=== PATIENT | male | born 1985 | race Caucasian/White ===

== ENCOUNTER 2017-01-13 12:45 | Emergency (ER) | payer OTHER, MEDICAID ==
[~2017-01-13] VITALS: Ht 172.7 cm; Wt 96.0 kg
[~2017-01-13 12:45] MED LIST: BACLPOW30 PO; LORA0.5T PO; LORTA5 PO; TRAZ50TA4 PO
[2017-01-13 12:51] VITALS: BP 113/75; PULSE 64; RESP 15; TEMP 98.5; O2SAT 98
[2017-01-13] MEDS ORDERED: AUGM500T7 PO (14:20)
[2017-01-13] MEDS ORDERED: DIAZ5 PO (14:20)
[2017-01-13 14:21] VITALS: BP 109/60; PULSE 55; RESP 17; TEMP 97.8; O2SAT 97
--- NOTE | 2017-01-13 15:13 | PD ---
HPI Chief Complaint: Medical Clearance Time Seen by Provider: 14:23 Travel History International Travel<30 days: No Contact w/Intl Traveler<30days: No Traveled to known affect area: No History of Present Illness HPI 31-year-old male percents emergency from for evaluation of right arm wound recheck. Patient reports 4 days ago he was bit by a stray pit bull and was treated at [facility]. He received first dose of rabies immunization and immunoglobulin and placed on antibiotics. The wound was loosely approximated with sutures. Over the last 4 days his is reporting that he appears "drowsy" prompting her visit today. Patient denies fever or chills. Patient reports pain at the site of the laceration but does not endorse any worsening pain since injury. PFSH Past Medical History Depression: Yes (PTSD) Diminished Hearing: No Musculoskeletal: Yes (BACK PAIN) Immunizations Current: Yes Influenza Vaccination: No Past Surgical History Appendectomy: Yes Social History Alcohol Use: Yes Tobacco Use: Yes (CHEWING TABACCO) Substance Use: No Allergies-Medications (Allergen,Severity, Reaction): Coded Allergies: etodolac (Unverified Allergy, Severe, 01/13/17) naproxen (Unverified Allergy, Severe, 01/13/17) simvastatin (Unverified Allergy, Severe, 01/13/17) Reported Meds & Prescriptions Reported Meds & Active Scripts Active Reported Augmentin (Amoxicillin-Clavulanate) 500-125 mg Tab 500 Mg PO BID Valium (Diazepam) 5 Mg Tab 5 Mg PO BID PRN [Baclofen] 50 Mg PO TID Review of Systems Except as stated in HPI: all other systems reviewed are Neg Physical Exam Narrative GENERAL: Well-nourished, well-developed patient. Patient appears drowsy but is easily arousable. Witnessed ambulate with a steady gait SKIN: Focused skin assessment warm/dry. HEAD: Normocephalic. EYES: No scleral icterus. No injection or drainage. NECK: Supple, trachea midline. No JVD or lymphadenopathy. CARDIOVASCULAR: Regular rate and rhythm without murmurs, gallops, or rubs. RESPIRATORY: Breath sounds equal bilaterally. No accessory muscle use. GASTROINTESTINAL: Abdomen soft, non-tender, nondistended. MUSCULOSKELETAL: No cyanosis, or edema. Right upper extremity: Patient has 2 well-healing lacerations to the dorsal lateral aspect of the wrist. There is no erythema, induration, fluctuance or drainage from the wound. Patient has full range of motion of the wrist and digits. BACK: Nontender without obvious deformity. No CVA tenderness. Data Data Last Documented VS Vital Signs Date Time Temp Pulse Resp B/P (MAP) Pulse Ox O2 Delivery O2 Flow Rate FiO2 01/13/17 14:21 97.8 55 17 109/60 (76) 97 Room Air Orders Orders Basic Metabolic Panel (Bmp) (01/13/17 14:24) Complete Blood Count With Diff (01/13/17 14:24) Drug Screen, Random Urine (01/13/17 14:24) Ed Discharge Order (01/13/17 16:21) Labs Laboratory Tests Test 01/13/17 14:45 White Blood Count 5.3 TH/MM3 Red Blood Count 4.97 MIL/MM3 Hemoglobin 14.4 GM/DL Hematocrit 43.0 % Mean Corpuscular Volume 86.4 FL Mean Corpuscular Hemoglobin 29.0 PG Mean Corpuscular Hemoglobin Concent 33.6 % Red Cell Distribution Width 12.8 % Platelet Count 230 TH/MM3 Mean Platelet Volume 8.0 FL Neutrophils (%) (Auto) 48.4 % Lymphocytes (%) (Auto) 34.7 % Monocytes (%) (Auto) 12.6 % Eosinophils (%) (Auto) 3.5 % Basophils (%) (Auto) 0.8 % Neutrophils # (Auto) 2.6 TH/MM3 Lymphocytes # (Auto) 1.8 TH/MM3 Monocytes # (Auto) 0.7 TH/MM3 Eosinophils # (Auto) 0.2 TH/MM3 Basophils # (Auto) 0.0 TH/MM3 CBC Comment DIFF FINAL Differential Comment Blood Urea Nitrogen 11 MG/DL Creatinine 0.90 MG/DL Random Glucose 91 MG/DL Calcium Level 9.4 MG/DL Sodium Level 136 MEQ/L Potassium Level 4.6 MEQ/L Chloride Level 102 MEQ/L Carbon Dioxide Level 31.8 MEQ/L Anion Gap 2 MEQ/L Estimat Glomerular Filtration Rate 97 ML/MIN Urine Opiates Screen NEG Urine Barbiturates Screen NEG Urine Amphetamines Screen NEG Urine Benzodiazepines Screen POS Urine Cocaine Screen NEG Urine Cannabinoids Screen NEG MDM Medical Decision Making Medical Screen Exam Complete: Yes Emergency Medical Condition: Yes Differential Diagnosis Wound infection, cellulitis, abscess Narrative Course 31-year-old male here with his for evaluation of dog bite/laceration to the right upper extremity 4 days ago. Patient is currently on Augmentin and reports compliance with this medication. was concerned the patient appeared drowsy for the last 2 days. Patient denies taking his Valium as prescribed. On exam patient has 2 well-healing lacerations which were loosely approximated. There is no evidence of wound infection/abscess/cellulitis. CBC: Unremarkable BMP: Unremarkable Drug screen: Positive for benzos Diagnosis Primary Impression: Encounter for wound re-check Additional Impression: Laceration of upper extremity Qualified Codes: S41.111A - Laceration without foreign body of right upper arm , initial encounter Referrals: Primary Care Physician Additional Instructions: Continue the antibiotics as prescribed. Follow your schedule for needed rabies vaccines. Follow up with her primary doctor for suture removal. Return to the emergency department if he developed new or worsening symptoms. Disposition: 01 DISCHARGE HOME Condition: Stable Elsie Garza Jan 13, 2017 15:13
[2017-01-13 15:24] LABS: AUTOMATED NEUTROPHIL # 2.6 TH/MM3 (1.8-7.7); BASOPHIL % 0.8 % (0.0-2.0); EOSINOPHIL # 0.2 TH/MM3 (0-0.4); EOSINOPHIL % 3.5 % (0.0-4.0); HEMO FLAGS DIFF FINAL; LYMPH % 34.7 % (9.0-44.0); LYMPHOCYTE # 1.8 TH/MM3 (1.0-4.8); MEAN CELL VOLUME 86.4 FL (80.0-100.0); MEAN CORPUSCULAR HGB CONC 33.6 % (32.0-36.0); MONO % 12.6 % (0.0-8.0); NEUT % 48.4 % (16.0-70.0); PLATELET COUNT 230 TH/MM3 (150-450); RED BLOOD COUNT 4.97 MIL/MM3 (4.50-5.90); RED CELL DISTRIBUTION WIDTH 12.8 % (11.6-17.2); WHITE BLOOD COUNT 5.3 TH/MM3 (4.0-11.0)
[2017-01-13 15:43] LABS: BICARBONATE 31.8 MEQ/L (21.0-32.0); POTASSIUM 4.6 MEQ/L (3.5-5.1)
[2017-01-13 16:37] VITALS: BP 123/81
== END 2017-01-13 16:38 | disposition home or self-care (01) ==
LOC: NEPD 12:45
DX: S61.511D Laceration without foreign body of right wrist, subsequent encounter (principal); R40.0 Somnolence; Z72.0 Tobacco use; Z86.59 Personal history of other mental and behavioral disorders; Z87.39 Personal history of other diseases of the musculoskeletal system and connective tissue; W54.0XXD Bitten by dog, subsequent encounter
CPT/HCPCS: 80048; 80307; 85025; 99283